=== PATIENT | female | born 2000 | race Caucasian/White ===

== ENCOUNTER → 2023-01-03 10:32 | Outpatient (BNVA) | payer OTHER, SELFPAY | PROVIDERS: Visit Provider Physician Assistant ==

== ENCOUNTER 2023-01-28 13:29 | Outpatient (AMB) | payer OTHER, SELFPAY ==
[2023-01-28 13:33] VITALS: BP 141/82; PULSE 124; TEMP 37.3; O2SAT 100; BMI 53.9
--- NOTE | 2023-01-28 13:33 | A.OFFVIS_ITS ---
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 Has taaken her 6 years to get here, has use Wegovy for 3 months - no weight loss only constipation. Her goal is to feel healthier. She reports first being concerned about her weight since childhood. She lives alone. She works 4 days per week from 2pm - 9pm. Will start PT MAS[facility] program in Fall with an therapy coordinator. Has appt with psychiatirst next week due to adverse reaactions to meds in general. No therapist presently, looking now. She wakes at: 9am, bed at falls asleep on her couch around ME, gets into bed at 3;30 am has a hard time falling back to sleep. No naps. Breakfast: 11a m- bagel with butter and water or Coffee - with cream and sometimes sweetener Lunch: 4pm - sandwich from restaurant and Diet Coke Dinner: 10 pm - boxed mac and cheese. vegetables 2d/week. water or Diet Coke After dinner: half of the week will have chips or ice cream Other snacks: chips 6 pm Liquids: no fruit juice or other sweetened drinks Alcohol intake: none, tobacco: none, marijuana: daily 6pm - 10pm, mostly smoking Exercise: none has access to gym wants to start Last mammogram: never Last pap smear: up to date control method: OCP's ANTONI: 2 ESS:9 GERD0: QOL:107 PFSH Medical History (Updated 01/28/23 @ 14:16 by Isabella Plaza PA-C) JESUS on CPAP Surgical History Hx of removal of cyst Family History Mother No problems noted. Father Blood clotting disorder Social History (Updated 01/28/23 @ 13:37 by Paxton Sierra CMA) Alcohol intake: never Patient Tobacco Use Status: Never used Tobacco Use of substances other than those prescribed or required for medical reasons: Yes Substance Use Type: Marijuana Physical Exam Vital Signs: Last Vital Signs Temp 99.1 F 01/28/23 13:33 Pulse 124 H 01/28/23 13:33 BP 141/82 H 01/28/23 13:33 Pulse Ox 100 01/28/23 13:33 Oxygen Delivery Method Room Air 01/28/23 13:33 BMI result Body Mass Index 53.9 Const General: cooperative, no acute distress and well developed Nutritional Appearance: obese Orientation/consciousness: patient oriented x3 HEENT Head: Yes normal to inspection Neck Neck: Yes normal visual inspection Thyroid: Thyroid normal Resp Effort & Inspection: normal respiratory effort Auscultation: clear to auscultation bilaterally Cardio Rate: regular rate Rhythm: regular rhythm Heart sounds: S1 normal heart sound present, S2 normal heart sound present and no murmurs GI Inspection: No distended and Yes obesity Palpation (GI): Soft to palpation, nontender and no guarding Skin General skin exam: no rashes or lesions noted and other (warm and dry) Wounds: no wounds Hair: normal Neuro General: patient oriented x3 Extrem General: Yes no pedal edema and Yes no calf tenderness Psych Attitude: cooperative Thought process: Normal thought process present Thought content: Normal thought content present Insight: Good insight present (Psych) Judgement: Good judgement present (Psych) Assessment & Plan Assessment & Plan (1) Morbid obesity: Code(s): E66.01 - Morbid (severe) obesity due to excess calories Plan: This is a 22 yo woman with morbid obesity with histoery os + SS many years ago, never used CPAP. Wantsstart SWL program to prepare for bariatric surgery. Blood work, h pylori , CXR, ECG, Abd ULS and UGI have been ordered. She is being scheduled for RD and BH initial consultations. She will start SWL classes and watch at 3 classes before her next appt with Nathalie. 1. Adequate sleep of 7-8 hours per night discussed 2. Healthy meal plan - stop skipping meals and stop all sweetened drinks All meals/MR's need to take 20 minutes to complete 11 am - 30 gram shake 2 pm- bar or yogurt 5 pm- dinner of 6 oz lean protein, 8 oz vegetable, 1 serving fruit 8pm - 30 gram shake Exercise - Cardio 5 d week =either walk 2 miles in 40 minutes for 300 johnny, LS 2 mile videos or treadmill speed 3, incline 2-7 for 350 johnny The importance of avoiding and breast feeding for at least 18 months after bariatric surgery was discussed in the information session and was reinforced today. Pt will purchase body composition analyzer (recommended list given to patient) and weight herself weekly. Next appt with me in 3 weeks. Text me with any questions and weekly weights. Patient is morbidly obese and is not considered stable at this time.?I spent a total of 60 minutes reviewing/updating records, examining the patient and counseling the patient on weight management as detailed above. (2) JESUS on CPAP: Code(s): G47.33 - Obstructive sleep apnea (adult) (pediatric) (3) Anxiety with depression: Code(s): F41.8 - Other specified anxiety disorders (4) Pre-op evaluation: Code(s): Z01.818 - Encounter for other preprocedural examination Orders: Orders Vitamin B12 and Folate Today E66.01 - Morbid (severe) obesity due to excess calories, Z86.69 - Personal history of other diseases of the nervous system and sense organs Comprehensive Met. Panel Today E66.01 - Morbid (severe) obesity due to excess calories, Z86.69 - Personal history of other diseases of the nervous system and sense organs C Reactive Protein Today E66.01 - Morbid (severe) obesity due to excess calor ies, Z86.69 - Personal history of other diseases of the nervous system and sense organs Ferritin Today E66.01 - Morbid (severe) obesity due to excess calories, Z86.69 - Personal history of other diseases of the nervous system and sense organs Hemoglobin A1c Today E66.01 - Morbid (severe) obesity due to excess calories, Z86.69 - Personal history of other diseases of the nervous system and sense organs Insulin Today E66.01 - Morbid (severe) obesity due to excess calories, Z86.69 - Personal history of other diseases of the nervous system and sense organs IRON PROFILE Today E66.01 - Morbid (severe) obesity due to excess calories, Z86.69 - Personal history of other diseases of the nervous system and sense organs Lipid Panel Today E66.01 - Morbid (severe) obesity due to excess calories, Z86.69 - Personal history of other diseases of the nervous system and sense organs PTHI Today E66.01 - Morbid (severe) obesity due to excess calories, Z86.69 - Personal history of other diseases of the nervous system and sense organs TSH reflex Free T4 Today E66.01 - Morbid (severe) obesity due to excess calories, Z86.69 - Personal history of other diseases of the nervous system and sense organs Vitamin A Today E66.01 - Morbid (severe) obesity due to excess calories, Z86.69 - Personal history of other diseases of the nervous system and sense organs Vitamin B1 Today E66.01 - Morbid (severe) obesity due to excess calories, Z86.69 - Personal history of other diseases of the nervous system and sense organs Vitamin D 25-OH Total Today E66.01 - Morbid (severe) obesity due to excess calories, Z86.69 - Personal history of other diseases of the nervous system and sense organs Zinc Today E66.01 - Morbid (severe) obesity due to excess calories, Z86.69 - Personal history of other diseases of the nervous system and sense organs ECG 12 lead EKG Today E66.01 - Morbid (severe) obesity due to excess calories, Z86.69 - Personal history of other diseases of the nervous system and sense organs FL upper GI w air Today E66.01 - Morbid (severe) obesity due to excess calories, Z86.69 - Personal history of other diseases of the nervous system and sense organs Complete Blood Count Auto Diff Today E66.01 - Morbid (severe) obesity due to excess calories, Z86.69 - Personal history of other diseases of the nervous system and sense organs RT home sleep study Today E66.01 - Morbid (severe) obesity due to excess calories, Z86.69 - Personal history of other diseases of the nervous system and sense organs H Pylori Breath Test Today E66.01 - Morbid (severe) obesity due to excess ca lories, Z86.69 - Personal history of other diseases of the nervous system and sense organs US abdomen comp w elastography Today E66.01 - Morbid (severe) obesity due to excess calories, Z86.69 - Personal history of other diseases of the nervous system and sense organs XR chest 2V Today E66.01 - Morbid (severe) obesity due to excess calories, Z86 .69 - Personal history of other diseases of the nervous system and sense organs Referrals Behavioral Health Referral E66.01 - Morbid (severe) obesity due to excess calories, Z86.69 - Personal history of other diseases of the nervous system and sense organs Nutrition/Dietitian Referral E66.01 - Morbid (severe) obesity due to excess calories, Z86.69 - Personal history of other diseases of the nervous system and sense organs Coding Level of Care Code New Pt Level 5 (57136) Diagnoses Morbid obesity E66.01 JESUS on CPAP G47.33 Anxiety with depression F41.8 Pre-op evaluation Z01.818
== END 2023-01-28 14:40 | disposition home or self-care (01) ==
PROVIDERS: Visit Provider Physician Assistant
DX: E66.01 Morbid (severe) obesity due to excess calories (principal); Z68.43 Body mass index [BMI] 50.0-59.9, adult; G47.33 Obstructive sleep apnea (adult) (pediatric); F41.8 Other specified anxiety disorders
CPT/HCPCS: 99205

== ENCOUNTER → 2023-01-28 13:29 | Outpatient (REF) | payer OTHER, SELFPAY ==
--- NOTE | ~2023-01-28 | XR_ITS ---
EXAMINATION: XR CHEST CLINICAL INFORMATION: Morbid obesity due to excess calories COMPARISON: None available. TECHNIQUE: 2 views of the chest were obtained. FINDINGS: Low lung volumes. Visualization limited due to body habitus. Heart size within normal limits. There is no gross pneumothorax. No focal consolidation to suggest pneumonia. No pleural effusion. XR/XR chest 2V IMPRESSION: No evidence of pneumonia.
--- NOTE | 2023-01-28 15:19 | ECG_ITS ---
Test Reason : e66.01 Blood Pressure : / mmHG Vent. Rate : 104 BPM Atrial Rate : 104 BPM P-R Int : 152 ms QRS Dur : 084 ms QT Int : 334 ms P-R-T Axes : 067 024 019 degrees QTc Int : 439 ms Sinus tachycardia Otherwise normal ECG No previous ECGs available Referred By: Isabella Plaza Electronically Signed By:Giancarlo Henson
[2023-01-29 10:31] LABS: H Pylori Breath Test Negative (Negative)
== END ==
LOC: HO.CARD 13:29
PROVIDERS: PCP Family Medicine; Visit Provider Physician Assistant
DX: Z01.818 Encounter for other preprocedural examination (principal); E66.01 Morbid (severe) obesity due to excess calories; G47.33 Obstructive sleep apnea (adult) (pediatric); F41.8 Other specified anxiety disorders; Z86.69 Personal history of other diseases of the nervous system and sense organs
CPT/HCPCS: 36415; 71046; 83013; 93005

== ENCOUNTER → 2023-01-28 15:19 | Outpatient (BNV) | payer OTHER, SELFPAY | PROVIDERS: PCP Family Medicine; Visit Provider Internal Medicine Cardiovascular Disease | DX: R00.0 Tachycardia, unspecified (principal) | CPT/HCPCS: 93010 ==